=== PATIENT | female | born 1970 | race Caucasian/White ===

== ENCOUNTER → 2019-09-06 | Outpatient (CLI) | payer OTHER, SELFPAY ==
--- NOTE | 2019-09-06 14:54 | BI_ITS ---
MAMMOGRAPHY - BILATERAL SCREENING REASON FOR EXAM: Female, 49 years old. Routine annual screening examination. PERTINENT HISTORY: Grandmother with breast cancer. Aunt with breast cancer. TECHNIQUE: Digital bilateral breast harriet (3D mammographic acquisition) in the CC and MLO projections. 2-D mediolateral oblique (MLO) and craniocaudad (CC) views of both breasts were obtained. CAD: Full Field Digital Mammography with Computer Added Detection was performed. COMPARISON: Comparison is made with prior study dated December 17, 2015 and November 20, 2014. FINDINGS: Breast Composition: The breasts are extremely dense, which lowers the sensitivity of mammography. There are no dominant masses or suspicious calcifications. No other significant abnormalities are identified. There has been no significant change since the prior study. BI/SCREEN MAMM (CAD) W/HARRIET BILAT IMPRESSION: Stable bilateral screening mammogram. Yearly follow-up mammogram recommended. (A) ASSESSMENT CATEGORY: BIRADS Category 1: Negative. A letter regarding these results will be sent to the patient by the facility within 30 days. Approximately 10% of breast cancers are not detected by mammography. A normal mammogram should not delay biopsy of a clinically suspicious abnormality. [id number] Electronically Signed: Abel Shi, at 9:07 EST , Service support ,
== END | disposition home or self-care (01) ==
LOC: OPBI 14:44
PROVIDERS: Family Provider Nurse Practitioner; PCP Nurse Practitioner; Referring Provider Nurse Practitioner; Visit Provider Nurse Practitioner
DX: Z12.31 Encounter for screening mammogram for malignant neoplasm of breast (principal)
CPT/HCPCS: 77063; 77067

== ENCOUNTER 2021-01-15 14:05 | Outpatient (RCR) | payer OTHER, SELFPAY | END 2021-03-30 23:59 | LOC: IMMUN 14:05 | PROVIDERS: PCP Nurse Practitioner; Visit Provider Family Medicine | DX: Z23 Encounter for immunization (principal) | CPT/HCPCS: 0001A; 0002A; 91300 ==

== ENCOUNTER 2022-01-06 13:17 | Outpatient (CLI) | payer OTHER, SELFPAY ==
--- NOTE | 2022-01-06 13:19 | BI_ITS ---
MAMMOGRAPHY - BILATERAL SCREENING 3-D TOMOSYNTHESIS REASON FOR EXAM: Female, 51 years old. SCREENING PERTINENT HISTORY: No significant family history. TECHNIQUE: 2-D mammograms and 3-D Tomosynthesis of the breast (s) were performed. CAD was performed. COMPARISON: 09/06/2019 FINDINGS: The breast composition is Extermely dense tissue. Scattered benign calcifications are seen. No dense spiculated masses or suspicious microcalcifications are identified. No architectural distortion is identified. There is no skin thickening or retraction. There has been no significant change since the prior study. BI/SCRN MAMM (CAD)W/HARRIET BILAT IMPRESSION: No mammographic signs of malignancy. Routine yearly mammograms recommended. ASSESSMENT CATEGORY: BIRADS Category 1: Negative. A letter regarding these results will be sent to the patient by the facility within 30 days. FOLLOW UP RECOMMENDATION: Yearly follow up mammogram recommended. (A) Approximately 10% of breast cancers are not detected by mammography. A normal mammogram should not delay biopsy of a clinically suspicious abnormality. Electronically Signed: Carlin Blanchard MD at 13:57 EDT ,
== END 2022-01-06 23:59 | disposition home or self-care (01) ==
LOC: OPBI 13:17
PROVIDERS: PCP Nurse Practitioner; Visit Provider Nurse Practitioner
DX: Z12.31 Encounter for screening mammogram for malignant neoplasm of breast (principal)
CPT/HCPCS: 77063; 77067

== ENCOUNTER → 2023-11-22 | Outpatient (CLI) | payer OTHER, SELFPAY ==
--- NOTE | 2023-11-22 11:25 | US_ITS ---
STUDY: THYROID ULTRASOUND REASON FOR EXAM: Female, 53 years old. thyroid nodules TECHNIQUE: Ultrasound evaluation of the thyroid was performed with real-time and static bonilla-scale imaging. COMPARISON: 06/20/2016 FINDINGS: RIGHT LOBE: The right lobe of the thyroid gland measures 4.9 x 1.8 x 1.3 cm. There is a homogeneous echotexture. Multiple tiny (less than 5 mm) hypoechoic and anechoic nodules consistent with adenomas or colloid cyst. LEFT LOBE: The left lobe of the thyroid gland measures 4.3 x 1.8 x 1.2 cm. There is a homogeneous echotexture. Multiple tiny (less than 5 mm) hypoechoic and anechoic nodules consistent with adenomas or colloid cyst. ISTHMUS: The isthmus measures 3 mm thick. . The regional lymph nodes are normal. US/Thyroid IMPRESSION: No change in multinodular thyroid gland with tiny adenomas or colloid cyst or Electronically Signed: Carlin Blanchard MD at 19:07 EST ,
--- OUTSIDE RECORDS SUMMARY | 2023-11-22 12:43 | XMS RPT_ITS | CCD ---
Author Name Unknown Address [address] [place] [address] Organization [facility] Care Team Providers Care Certified Professional Coder Name Role Phone Ellie Vargas Attending Unavailable Ellie Vargas Referring Unavailable Ellie Vargas Consulting Unavailable Ellie Vargas Unavailable Sari Triana Unavailable Unavailable Dixon العراقي Unavailable Unavailable Ainsley Neff Unavailable Unavailable Unavailable Unavailable Dixon العراقي Unavailable Unavailable Unavailable Unavailable Ellie Vargas CNP Unavailable Dr. Adonis Weller Unavailable Dixon Villalobos LPN Unavailable Unavailable Ainsley Neff LPN Unavailable Unavailable Unavailable Unavailable Ellie Vargas Unavailable Ellie Vargas Unavailable Medications Current Medications Medication Drug Class(es) Dates Sig (Normalized) Sig (Original) cetirizine hydrochloride 10 mg oral tablet (7 sources) Histamine-1 Receptor Antagonist Start: 01-17-2022 Zyrtec 10 mg oral tablet Dose : 10 mg = 1 tab(s), Oral, qDay, # 30 tab(s), 0 Refill(s) Start Date: 01/17/22 Status: Ordered Completed/Discontinued Medications Medication Drug Class(es) Dates Sig (Normalized) Sig (Original) acetaminophen 325 mg / oxyCODONE hydrochloride 5 mg oral tablet (10 sources) Opioid Agonist End: 06-19-2009 OXYCODONE-ACETAMI NOPHEN, 5-325MG (Oral Tablet) 1-2 every 6 hours Daily for 0 days Refills: 0 Ordered: 19-Jun-2009 JEREMIAH Cardenas LPN End : 19-Jun-2009 Inactive [id number] 200 actuat albuterol 0.09 mg/actuat metered dose inhaler (20 sources) beta2-Adrenergic Agonist Start: 04-22-2020 ProAir HFA 108 (90 Base) MCG/ACT Inhalation Aerosol Solution 1 (one) Aerosol Soln tid prn for 0 days Quantity: 1 {Inhaler} Refills: 0 Ordered: 22-Apr-2020 Ellie Vargas Mary Start : 22-Apr-2020 Active Problems Active Problems Problem Classification Problem Date Documented Da te Episodic/Chronic Administrative/social admission (4 sources) Medical examinations/reports status; Translations: [Well woman exam] 12-07-2018 Episodic Past or Other Problems Problem Classification Problem Date Documented Date Episodic/Chronic Residual codes; unclassified (4 sources) Requires a tetanus booster; Translations: [Need for tetanus booster] Resolved: 12-14-2015 12-14-2015 Episodic Residual codes; unclassified (4 sources) Needs influenza immunization; Translations: [Need for prophylactic vaccination and inoculation against influenza] Resolved: 05-02-2014 07-28-2015 Episodic Unclassified (9 sources) BMI 25.0-25.9,adult Unclassified (9 sources) DOT- GENERAL MEDICAL EXAMINATION FOR ADMINISTRATIVE PURPOSES (V70.3) Unclassified (20 sources) well women --Pamela Resolved: 05-02-2014 05-02-2014 Unclassified (20 sources) Current non-smoker ; Translations: [Current nonsmoker (Renamed from Current non-smoker)] 11-08-2016 Unclassified (10 sources) Deliveries (Parity); Translations: [Deliveries (Parity)] 12-07-2018 Results Test Name Value Interpretation Reference Range Facil ity Vital Signs Date Time Vital Sign Value Performing Clinician Facility 01-17-2022 10:00-0400 Diastolic blood pressure 66 mm[Hg] DR ADONIS WELLER MD [facility] 01-17-2022 10:00-0400 Heart rate 55 /min DR ADONIS WELLER MD [facility] 01-17-2022 10:00-0400 Respiratory rate 13 /min DR ADONIS WELLER MD [facility] 01-17-2022 10:00-0400 Systolic blood pressure 90 mm[Hg] DR ADONIS WELLER MD [facility] 01-17-2022 09:54-0400 Diastolic blood pressure 69 mm[Hg] DR ADONIS WELLER MD [facility] 01-17-2022 09:54-0400 Heart rate 67 /min DR ADONIS WELLER MD [facility] 01-17-2022 09:54-0400 Respiratory rate 12 /min DR ADONIS WELLER MD [facility] 01-17-2022 09:54-0400 Systolic blood pressure 95 mm[Hg] DR ADONIS WELLER MD [facility] 01-17-2022 09:50-0400 Diastolic blood pressure 64 mm[Hg] DR ADONIS WELLER MD [facility] 01-17-2022 09:50-0400 Heart rate 61 /min DR ADONIS WELLER MD [facility] 01-17-2022 09:50-0400 Respiratory rate 16 /min DR ADONIS WELLER MD [facility] 01-17-2022 09:50-0400 Systolic blood pressure 91 mm[Hg] DR ADONIS WELLER MD [facility] 01-17-2022 09:30-0400 Diastolic Blood Pressure NBP [address] ADONIS WELLER MD [facility] 01-17-2022 09:30-0400 Systolic Blood Pressure NBP [address] ADONIS WELLER MD [facility] 01-17-2022 09:28-0400 Diastolic Blood Pressure NBP [address] ADONIS WELLER MD [facility] 01-17-2022 09:28-0400 Systolic Blood Pressure NBP [address] ADONIS WELLER MD [facility] 01-17-2022 09:22-0400 Diastolic Blood Pressure NBP [address] ADONIS WELLER MD [facility] 01-17-2022 09:22-0400 Systolic Blood Pressure NBP [address] ADONIS WELLER MD [facility] 01-17-2022 09:08-0400 Body height 157.[address] ADONIS WELLER MD [facility] 01-17-2022 08:47-0400 Body height 157.[address] ADONIS WELLER MD [facility] 01-17-2022 08:47-0400 Body temperature 97.16 [degF] DR ADONIS WELLER MD [facility] 01-17-2022 08:47-0400 Body weight 67.[address] ADONIS WELLER MD [facility] 01-17-2022 08:47-0400 Heart rate 68 /min DR ADONIS WELLER MD [facility] 12-24-2021 09:38-0500 Body height 157.48 cm Ainsley Neff LPN [facility] Work Phone: Encounters Encounter Date Encounter Type Care Provider Facility Start: 01-17-2022 End: 01-17-[address] ADONIS WELLER MD [facility] Start: 01-06-2022 End: 01-06-2022 Annotation/Addendum Ellie Vargas Work Phone: [facility] Start: 12-24-2021 End: 12-24-2021 Office outpatient visit 10 minutes Ellie Vargas [employer] Work Phone: [facility] Start: 12-17-2021 End: 12-17-2021 Office outpatient visit 15 minutes Ellie Vargas [employer] Work Phone: [facility] Start: 12-17-2021 Review Ellie Vargas [employer] Work Phone: [facility] Start: 04-22-2020 End: 04-22-2020 Office outpatient visit 15 minutes Ellie Garlandtammi [facility] Start: 12-23-2019 End: 12-23-2019 Annotation/Addendum Ellie Varags [facility] Start: 09-06-2019 Review Ellie Vargas [facility] Start: 12-07-2018 End: 12-07-2018 Annotation/Addendum Ellie Vargas [facility] Start: 12-07-2018 End: 12-07-2018 Patient encounter status Ellie Vargas Work Phone: [facility] Start: 12-07-2018 End: 12-07-2018 Periodic preventive med est patient 40-64yrs Ellie Vargas [facility] Start: 11-21-2018 Patient encounter procedure Ellie Vargas [facility] Start: 11-08-2016 End: 11-08-2016 Office outpatient visit 15 minutes Ellie Vargas [facility] Start: 01-14-2016 End: 01-14-2016 Office outpatient visit 15 minutes Ellie Vargas [facility] Start: 12-17-2015 End: 12-17-2015 Phone Encounter Ellie Vargas [facility] Start: 12-14-2015 End: 12-14-2015 Patient encounter procedure Ellie Vargas Work Phone: [facility] Start: 12-14-2015 End: 12-14-2015 Periodic preventive med est patient 18-39 yrs Ellie Vargas [facility] Start: 05-20-2014 End: 05-20-2014 Office outpatient visit 40 minutes Ellie Garlandtammi [facility] Start: 05-02-2014 End: 05-02-2014 Patient encounter procedure Ellie Vargas [facility] Start: 07-11-2012 End: 07-11-2012 Office outpatient visit 15 minutes Ellie Vargas [facility] Start: 07-11-2012 End: 07-11-2012 Physical examination Ellie Vargas Work Phone: [facility] Start: 07-06-2012 End: 07-06-2012 Patient encounter procedure Ellie Vargas [facility] Start: 08-27-2009 End: 08-27-2009 Patient encounter procedure Ellie Vargas [facility] Start: 06-19-2009 End: 06-19-2009 Patient encounter procedure Ellie Vargas [facility] Start: 07-10-2006 End: 07-10-2006 Office outpatient visit 15 minutes Ellie Vargas [facility] Start: 07-10-2006 End: 07-10-2006 Patient encounter status Ellie Vargas Work Phone: [facility] Start: 07-10-2006 End: 07-10-2006 Historical Summary Ellie Vargas [facility] Patient encounter procedure Dixon Villalobos LPN [facility] Work Phone: Procedures Date Procedure Procedure Detail Performing Clinician Start: 01-17-[address] ADONIS WELLER MD Start: 01-06-2022 End: 01-06-2022 SCRN MAMM (CAD)W/HARRIET BILAT Comments: See Note; NOTES: [facility] [address] [place] [address] SCRN MAMM (CAD)W/HARRIET BILAT MR#: [id number] Acct: [id number] Name: GLO HENRY Rep #: [id number] : 1970 F 51 From: Carlin Blanchard MD PCP: HERVE Nolen Status: REG CLI Study: SCRN MAMM (CAD)W/HARRIET BILAT Date of Exam: 12/21 05/13 Exam# [id number] Ordering Dr: Ellie Vargas NP [employer]-Dorina MAMMOGRAPHY - BILATERAL SCREENING 3-D TOMOSYNTHESIS REASON FOR EXAM: Female, 51 years old. SCREENING PERTINENT HISTORY: No significant family history. TECHNIQUE: 2-D mammograms and 3-D Tomosynthesis of the breast (s) were performed. CAD was performed. COMPARISON: 09/06/2019 FINDINGS: The breast composition is Extermely dense tissue. Scattered benign calcifications are seen. No dense spiculated masses or suspicious microcalcifications are identified. No architectural distortion is identified. There is no skin thickening or retraction. There has been no significant change since the prior study. BI/SCRN MAMM (CAD)W/HARRIET BILAT IMPRESSION: No mammographic signs of malignancy. Routine yearly mammograms recommended. ASSESSMENT CATEGORY: BIRADS Category 1: Negative. A letter regarding these results will be sent to the patient by the facility within 30 days. FOLLOW UP RECOMMENDATION: Yearly follow up mammogram recommended. (A) Approximately 10% of breast cancers are not detected by mammography. A normal mammogram should not delay biopsy of a clinically suspicious abnormality. Electronically Signed: Carlin Blanchard MD at 13:57 EDT , CC: HERVE Vargas Special Education Educational Assistant: Signed Ellie Vargas Work Phone: Start: 09-06-2019 End: 09-09-2019 SCREEN MAMM (CAD) W/HARRIET BILAT Comments: See Note; NOTES: [facility] [address] [place] [address] SCREEN MAMM (CAD) W/HARRIET BILAT MR#: [id number] Acct: [id number] Name: GLO HENRY Rep #: [id number] : 1970 F 49 From: Abel Shi MD PCP: HERVE Nolen Status: [facility] Study: SCREEN MAMM (CAD) W/HARRIET BILAT Date of Exam: 09/06/19 Exam# [id number] Ordering Dr: Ellie Vargas MAMMOGRAPHY - BILATERAL SCREENING REASON FOR EXAM: Female, 49 years old. Routine annual screening examination. PERTINENT HISTORY: Grandmother with breast cancer. Aunt with breast cancer. TECHNIQUE: Digital bilateral breast harriet (3D mammographic acquisition) in the CC and MLO projections. 2-D mediolateral oblique (MLO) and craniocaudad (CC) views of both breasts were obtained. CAD: Full Field Digital Mammography with Computer Added Detection was performed. COMPARISON: Comparison is made with prior study dated December 17, 2015 and November 20, 2014. FINDINGS: Breast Composition: The breasts are extremely dense, which lowers the sensitivity of mammography. There are no dominant masses or suspicious calcifications. No other significant abnormalities are identified. There has been no significant change since the prior study. BI/SCREEN MAMM (CAD) W/HARRIET BILAT IMPRESSION: Stable bilateral screening mammogram. Yearly follow-up mammogram recommended. (A) ASSESSMENT CATEGORY: BIRADS Category 1: Negative. A letter regarding these results will be sent to the patient by the facility within 30 days. Approximately 10% of breast cancers are not detected by mammography. A normal mammogram should not delay biopsy of a clinically suspicious abnormality. [id number] Electronically Signed: Abel Shi, at 9:07 EST , Service support , CC: HERVE Vargas Special Education Educational Assistant: Signed Ellie Vargas Work Phone: Start: 06-20-2016 End: 06-20-2016 Thyroid Comments: See Note; NOTES: [facility] [address] [place] [address] Verdana 4d Thyroid MR#: [id number] Acct: [id number] Name: GLO HENRY Rep #: [id number] : 1970 F 46 From: Pb Solares MD PCP: Zoe Osman MD Status: REG CLI Study: Thyroid Date of Exam: 06/20/16 Exam# [id number] Ordering Dr: Zoe Osman MD STUDY: THYROID ULTRASOUND REASON FOR EXAM: Female, 46 years old. NODULES TECHNIQUE: Ultrasound evaluation of the thyroid was performed with real-time and static bonilla-scale imaging. COMPARISON: US - Thyroid - 15:04 FINDINGS: RIGHT LOBE: The right lobe of the thyroid gland measures 5.2x1.4x1.5 cm. There is a homogeneous echotexture. Single nodule noted. It is 3 x 2 x 2mm. The lesion is cystic with regular margins and tari-nodular doppler flow. LEFT LOBE: The left lobe of the thyroid gland measures 5x 1.5 x 1.3 cm. There is a homogeneous echotexture. 2 nodules noted. These are 3 x 3 x 2mm and 3 x 3 x 3mm. The lesion is solid with regular margins and tari-nodular doppler flow. ISTHMUS: The isthmus measures 2mm. US/Thyroid IMPRESSION: Nodules previously noted are stable in size. However, there is a new nodule in the inferior left lobe measuring 3mm. Electronically Signed: Pb Solares MD at 22:15 EDT , Service support [phone], CC: Zoe Osman MD Special Education Educational Assistant: Signed Zoe Osman Work Phone: Start: 01-15-2016 End: 01-15-2016 Transvaginal Non- Comments: See Note; NOTES: [facility] [address] [place] [address] Verdana 4d Transvaginal Non- MR#: [id number] Acct: [id number] Name: GLO HENRY Rep #: [id number] : 1970 F 45 From: Deonte Busch MD PCP: Zoe Osman MD Status: REG CLI Study: Transvaginal Non- Date of Exam: 01/15/16 Exam# [id number] Ordering Dr: Zoe Osman MD STUDY: ULTRASOUND TRANSVAGINAL CLINICAL: Female, 45 years old. Right pelvic fullness TECHNIQUE: Transvaginal COMPARISON: None. FINDINGS: Normal uterine size measuring 11.4 cm in maximal craniocaudal dimension. There are 2 small fibroids, the larger measures 2.2 cm, the smaller 1.3 cm. Normal endometrial thickness measuring 14 mm. There are no endometrial masses, and there is no fluid in the endometrial cavity. Normal uterine cervix, aside from some of the calcifications which are likely from previous instrumentation. Normal right ovary, measuring 2.5 x 3.5 x 1.9 cm. There are multiple follicles without a dominant cyst. Normal left ovary, measuring 2.4 x 2.7 x 1.6 cm. There are multiple follicles without a dominant cyst. There is no free fluid in the pelvis. IMPRESSION: 2 small uterine fibroids. No suspicious adnexal mass or free fluid Electronically Signed: Florentino Busch MD at 13:34 EDT Tel , Service support [phone], CC: Zoe Osman MD Special Education Educational Assistant: Signed Zoe Osman Work Phone: Start: 01-15-2016 End: 01-15-2016 Pelvic (Non ) Comments: See Note; NOTES: [facility] [address] [place] [address] Verdana 4d Pelvic (Non ) MR#: [id number] Acct: [id number] Name: GLO HENRY Rep #: [id number] : 1970 F 45 From: Deonte Busch MD PCP: Zoe Osman MD Status: REG CLI Study: Pelvic (Non ) Date of Exam: 01/15/16 Exam# [id number] Ordering Dr: Zoe Osman MD STUDY: ULTRASOUND TRANSVAGINAL CLINICAL: Female, 45 years old. Right pelvic fullness TECHNIQUE: Transvaginal COMPARISON: None. FINDINGS: Normal uterine size measuring 11.4 cm in maximal craniocaudal dimension. There are 2 small fibroids, the larger measures 2.2 cm, the smaller 1.3 cm. Normal endometrial thickness measuring 14 mm. There are no endometrial masses, and there is no fluid in the endometrial cavity. Normal uterine cervix, aside from some of the calcifications which are likely from previous instrumentation. Normal right ovary, measuring 2.5 x 3.5 x 1.9 cm. There are multiple follicles without a dominant cyst. Normal left ovary, measuring 2.4 x 2.7 x 1.6 cm. There are multiple follicles without a dominant cyst. There is no free fluid in the pelvis. IMPRESSION: 2 small uterine fibroids. No suspicious adnexal mass or free fluid Electronically Signed: Florentino Busch MD at 13:34 EDT Tel , Service support [phone], CC: Zoe Osman MD Special Education Educational Assistant: Signed Zoe Osman Work Phone: Start: 12-17-2015 End: 12-18-2015 Thyroid Comments: See Note; NOTES: [facility] [address] [place] [address] Verdana 4d Thyroid MR#: [id number] Acct: [id number] Name: GLO HENRY Rep #: [id number] : 1970 F 45 From: Abel Shi MD PCP: Zoe Osman MD Status: REG CLI Study: Thyroid Date of Exam: 12/17/15 Exam# [id number] Ordering Dr: Zoe Osman MD STUDY: THYROID ULTRASOUND REASON FOR EXAM: Female, 45 years old. Thyromegaly. TECHNIQUE: Ultrasound evaluation of the thyroid was performed with real-time and static bonilla-scale imaging. COMPARISON: None. FINDINGS: RIGHT LOBE: The right lobe of the thyroid gland measures 4.6 cm x 1.4 cm x 1.2 cm. There is a homogeneous echotexture. There is a 3 mm x 3 mm x 2 mm cyst in the lower pole of the right lobe there are LEFT LOBE: The left lobe of the thyroid gland measures 4.7 cm x 1.6 cm x 1.1 cm. There is a homogeneous echotexture. There is a 3 mm x 3 mm x 3 mm well-defined hypoechoic solid nodule in the inferior pole of the left lobe. ISTHMUS: The isthmus measures 3.0 mm. The regional lymph nodes are normal. IMPRESSION: Sub-centimeters cyst in the right lobe and subcentimeter hypoechoic solid nodule in the left lobe. The thyroid is not enlarged. Electronically Signed: Abel Shi MD at 8:05 EST Tel [phone], Service support [phone], CC: Zoe Osman MD Special Education Educational Assistant: Signed Zoe Osman Work Phone: Start: 12-17-2015 End: 12-17-2015 Bilat Scrn Digital AND CAD Comments: See Note; NOTES: [facility] Services [address] [place] [address] Verdana 4d Bilat Scrn Digital AND CAD MR#: [id number] Acct: [id number] Name: GLO HENRY Rep #: [id number] : 1970 F 45 From: Abel Shi MD PCP: Zoe Osman MD Status: REG CLI Study: Bilat Scrn Digital AND CAD Date of Exam: 12/17/15 Exam# [id number] Ordering Dr: Zoe Osman MD MAMMOGRAPHY - BILATERAL SCREENING REASON FOR EXAM: Female, 45 years old. Routine annual screening examination. PERTINENT HISTORY: Grandmother with breast cancer. TECHNIQUE: Digital examination. Mediolateral oblique (MLO) and craniocaudad (CC) views of both breasts were obtained. CAD: CAD was performed on this study. COMPARISON: Comparison is made with prior study dated April 20, 2015 and July 01, 2011. FINDINGS: Breast Composition: The breasts are extremely dense, which lowers the sensitivity of mammography. There are no dominant masses or suspicious calcifications. No other significant abnormalities are identified. There has been no significant change since the prior study. IMPRESSION: Stable bilateral screening mammogram. Yearly follow-up mammogram recommended. (A) ASSESSMENT CATEGORY: BIRADS Category 1: Negative. A letter regarding these results will be sent to the patient by the facility within 30 days. Approximately 10% of breast cancers are not detected by mammography. A normal mammogram should not delay biopsy of a clinically suspicious abnormality. [id number] Electronically Signed: Abel Shi MD at 15:01 EST Tel [phone], Service support [phone], CC: Zoe Osman MD Special Education Educational Assistant: Signed Zoe Osman Work Phone: Start: 11-20-2014 End: 11-20-2014 Bilat Scrjennifer Digital AND CAD Comments: See Note; NOTES: [facility] Services [address] [place] [address] Breast Imaging Report MR#: [id number] Acct: [id number] Name: GLO HENRY Rep #: [id number] : 1970 F 44 From: Abel Shi MD PCP: Zoe Osman MD Status: REG CLI Study: Rosalinda Phillips Digital AND CAD Date of Exam: 11/20/14 Exam# [id number] Ordering Dr: Zoe Osman MD MAMMOGRAPHY - BILATERAL SCREENING REASON FOR EXAM: Female, 44 years old. Routine annual screening examination. PERTINENT HISTORY: Grandmother with breast cancer. TECHNIQUE: Digital examination. Mediolateral oblique (MLO) and craniocaudad (CC) views of both breasts were obtained. CAD: CAD was performed on this study. COMPARISON: Comparison is made with prior study dated July 01, 2011 and December 28, 2006. FINDINGS: Breast Composition: The breasts are extremely dense, which lowers the sensitivity of mammography. There are no dominant masses or suspicious calcifications. No other significant abnormalities are identified. There has been no significant change since the prior study. IMPRESSION: Stable bilateral screening mammogram. Yearly follow-up recommended. (A) ASSESSMENT CATEGORY: BIRADS Category 2: Benign. A letter regarding these results will be sent to the patient by the facility within 30 days. Approximately 10% of breast cancers are not detected by mammography. A normal mammogram should not delay biopsy of a clinically suspicious abnormality. Electronically Signed: Abel Shi MD at 14:27 EST Tel [phone], Service support [phone], CC: Zoe Osman MD Special Education Educational Assistant: Signed Zoe Osman Work Phone: section DR ADONIS WELLER MD Cholecystectomy DR ADONIS SANTANA MD Tonsillectomy DR ADONIS MANUEL MD Plan of Treatment Date Care Activity Detail Author Start: 12-24-2021 Procedure Education Eprescribed prescriptions (G8553) [facility]; [facility] Work Phone: Start: 12-24-2021 Provider Instructions for Treatment Follow up if no improvement or if symptoms worsen [facility]; [facility] Work Phone: Start: 12-17-2021 Procedure Education Eprescribed prescriptions (G8553) [facility]; [facility] Work Phone: Start: 12-17-2021 Provider Instructions for Treatment [facility]; [facility] Work Phone: Start: 12-17-2021 Comprehensive metabolic panel Metabolic Panel, Comprehensive (21405) [facility]; [facility] Work Phone: Start: 12-17-2021 Assay of thyroid stimulating hormone tsh TSH (THYROID STIMULATING HORMONE) (50362) [facility]; [facility] Work Phone: Start: 12-17-2021 Lipid panel LIPID PANEL (24542) [facility]; [facility] Work Phone: Start: 12-17-2021 Rheumatoid factor quantitative RHEUMATOID FACTOR-QUANT (89239) test code [id number] [facility]; [facility] Work Phone: Start: 12-17-2021 Extractable nuclear antigen antibody any method Systemic Lupus Profile (97783) [facility]; [facility] Work Phone: Start: 12-17-2021 Sedimentation rate rbc non-automated SED RATE ERYTHROCYTE (09805) [facility]; [facility] Work Phone: Start: 12-17-2021 Blood count complete automated CBC & PLATELETS (AUTO) (80524) [facility]; [facility] Work Phone: Start: 04-22-2020 Procedure Education Eprescribed prescriptions (G8553) [facility] Work Phone: Start: 04-22-2020 Provider Instructions for Treatment Follow up in 6 months make apt in am and fasting [facility] Work Phone: Start: 12-07-2018 Procedure Education Eprescribed prescriptions (G8553) [facility] Work Phone: Start: 12-07-2018 Provider Instructions for Treatment [facility] Work Phone: Start: 12-07-2018 Hpv, dna, amp probe HPV, Reflex (52892) [facility] Work Phone: Start: 12-07-2018 Cytp cerv/vag auto thin layer prep mnl screen Thin prep Pap (97395) (no STD testing) [facility] Work Phone: Start: 11-08-2016 Procedure Education Eprescribed prescriptions (G8553) [facility] Work Phone: Start: 11-08-2016 Provider Instructions for Treatment [facility] Work Phone: Start: 12-14-2015 Patient Education [facility] Work Phone: Start: 05-02-2014 Provider Instructions for Treatment [facility] Work Phone: Start: 05-02-2014 Cytp cerv/vag auto thin layer prep mnl screen Thin prep Pap ([id number]) [facility] Work Phone: Start: 07-11-2012 Provider Instructions for Treatment [facility] Work Phone: [facility] Work Phone: [facility] Work Phone: [facility] Work Phone: [facility] Work Phone: [facility] Work [facility] Work [facility] Work Phone: [facility] Work [facility]: [facility] Work [facility] Work Phone: [facility] Work Phone: [facility] Work Phone: [facility] Work Phone: [facility] Work Phone: [facility] Work Phone: Immunizations Immunization Date Immunization Notes Care Provider Kellie smith 08-10-2023 COVID-Moderna (100 MCG/0.5 ML) Ellie Vargas Work Phone: [facility]; [facility] Work Phone: Payers Date Payer Category Payer Unknown [id number] 2011 Private Health Insurance [id number] 2003 Unknown [id number] 1971 Unknown [id number] Unknown Social History Date Type Detail Facility Alcohol Use Never smoker [facility] Work Phone: Hospital Discharge instructions 01-17-2022 Note Date & Type Note Facility 01-17-2022 Hospital Discharg e instructions Patient Education 01/17/2022 09:42:03 Colonoscopy, Adult, Care After, [id number] Colonoscopy, Adult, Care After This sheet gives you information about how to care for yourself after your procedure. Your doctor may also give you more specific instructions. If you have problems or questions, call your doctor. What can I expect after the procedure? After the procedure, it is common to have: A small amount of blood in your poop for 24 hours. Some gas. Mild cramping or bloating in your belly. Follow these instructions at home: General instructions For the first 24 hours after the procedure: ?Do not drive or use machinery. ?Do not sign important documents. ?Do not drink alcohol. ?Do your daily activities more slowly than normal. ?Eat foods that are soft and easy to digest. Take [id number] or prescription medicines only as told by your doctor. To help cramping and bloating: Try walking around. Put heat on your belly (abdomen) as told by your doctor. Use a heat source that your doctor recommends, such as a moist heat pack or a heating pad. ?Put a towel between your skin and the heat source. ?Leave the heat on for 20 30 minutes. ?Remove the heat if your skin turns bright red. This is especially important if you cannot feel pain, heat, or cold. You can get burned. Eating and drinking Drink enough fluid to keep your pee (urine) clear or pale yellow. Return to your normal diet as told by your doctor. Avoid heavy or fried foods that are hard to digest. Avoid drinking alcohol for as long as told by your doctor. Contact a doctor if: You have blood in your poop (stool) 2 3 days after the procedure. Get help right away if: You have more than a small amount of blood in your poop. You see large clumps of tissue (blood clots) in your poop. Your belly is swollen. You feel sick to your stomach (nauseous). You throw up (vomit). You have a fever. You have belly pain that gets worse, and medicine does not help your pain. Summary After the procedure, it is common to have a small amount of blood in your poop. You may also have mild cramping and bloating in your belly. For the first 24 hours after the procedure, do not drive or use machinery, do not sign important documents, and do not drink alcohol. Get help right away if you have a lot of blood in your poop, feel sick to your stomach, have a fever, or have more belly pain. This information is not intended to replace advice given to you by your health care provider. Make sure you discuss any questions you have with your health care provider. Document Released: 11/11/2011 Document Revised: 08/09/2018 Document Reviewed: 07/03/2017 [employer] Patient Education ADOP. Follow Up Care 01/03/2022 12:25:15 With:ADONIS WELLER MD Address: [phone] When: Unknown Comments:Follow-up as needed [facility] Evaluation + Plan note Note Date & Type Note Facility Evaluation + Plan note No data available for this section [facility] Instructions Note Date & Type Note Facility [facility]; [facility] Work Phone: Instructions Note Date & Type Note Facility [facility]; [facility] Work Phone: Instructions Note Date & Type Note Facility [facility]; [facility] Work Phone: Instructions Note Date & Type Note Facility [facility]; [facility] Work Phone: Instructions Note Date & Type Note Facility [facility]; [facility] Work Phone: Summary Purpose Family History Unknown Family Member Name Dates Details Brother 1 Comments:healthy Status:Active Father Comments:hypercholesterolemi a, CTS Status:Active Mother Comments:fibroids Status:Active Sister 1 Comments:healthy Status:Active Unknown Family Member Name Dates Details Brother 1 Comments:healthy Status:Active Father Comments:hypercholesterolemi a, CTS Status:Active Mother Comments:fibroids Status:Active Sister 1 Comments:healthy Status:Active Unknown Family Member Name Dates Details Brother 1 Comments:healthy Status:Active Father Comments:hypercholesterolemi a, CTS Status:Active Mother Comments:fibroids Status:Active Sister 1 Comments:healthy Status:Active Unknown Family Member Name Dates Details Brother 1 Comments:healthy Status:Active Father Comments:hypercholesterolemi a, CTS Status:Active Mother Comments:fibroids Status:Active Sister 1 Comments:healthy Status:Active Unknown Family Member Name Dates Details Brother 1 Comments:healthy Status:Active Father Comments:hypercholesterolemi a, CTS Status:Active Mother Comments:fibroids Status:Active Sister 1 Comments:healthy Status:Active Unknown Family Member Name Dates Details Brother 1 Comments:healthy Status:Active Father Comments:hypercholesterolemi a, CTS Status:Active Mother Comments:fibroids Status:Active Sister 1 Comments:healthy Status:Active Unknown Family Member Name Dates Details Brother 1 Comments:healthy Status:Active Father Comments:hypercholesterolemi a, CTS Status:Active Mother Comments:fibroids Status:Active Sister 1 Comments:healthy Status:Active Unknown Family Member Name Dates Details Brother 1 Comments:healthy Status:Active Father Comments:hypercholesterolemi a, CTS Status:Active Mother Comments:fibroids Status:Active Sister 1 Comments:healthy Status:Active Advance Directives Name Dates Details Immunization Registry [place] - Effective on 08/14/2023. Expiration date unspecified Effective:14-Aug-2023 Instructions Name Dates Details Nonsmoker : How to access he alth information online Indication:Nonsmoker Nonsmoker : How to access he alth information online - Detail Indication:Nonsmoker Nonsmoker : Patient Instruct ions Indication:Nonsmoker Cough : How to access health information online Indication:Cough Cough : How to access health information online - Detail Indication:Cough Cough : Patient Instructions Indication:Cough Thyroid nodule : How to acce ss health information online Indication:Thyroid nodule Thyroid nodule : How to acce ss health information online - Detail Indication:Thyroid nodule Thyroid nodule : Patient Ins tructions Indication:Thyroid nodule Well woman exam : How to acc ess health information online Indication:Well woman exam Well woman exam : How to acc ess health information online - Detail Indication:Well woman exam Well woman exam : Patient In structions Indication:Well woman exam Name Dates Details How to access health informa tion online Indication:Nonsmoker Start:22-Apr-2020 Instruction Type:Patient Education How to access health informa tion online - Detail Indication:Nonsmoker Start:22-Apr-2020 Instruction Type:Patient Education Patient Instructions Indication:Nonsmoker Start:22-Apr-2020 Instruction Type:Provider Instructions for Treatment How to access health informa tion online Indication:Nonsmoker Start:07-Dec-2018 Instruction Type:Patient Education How to access health informa tion online - Detail Indication:Nonsmoker Start:07-Dec-2018 Instruction Type:Patient Education Patient Instructions Indication:Nonsmoker Start:07-Dec-2018 Instruction Type:Provider Instructions for Treatment How to access health informa tion online Indication:Cough Start:08-Nov-2016 Instruction Type:Patient Education How to access health informa tion online - Detail Indication:Cough Start:08-Nov-2016 Instruction Type:Patient Education Patient Instructions Indication:Cough Start:08-Nov-2016 Instruction Type:Provider Instructions for Treatment How to access health informa tion online Indication:Thyroid nodule Start:14-Jan-2016 Instruction Type:Patient Education How to access health informa tion online - Detail Indication:Thyroid nodule Start:14-Jan-2016 Instruction Type:Patient Education Patient Instructions Indication:Thyroid nodule Start:14-Jan-2016 Instruction Type:Provider Instructions for Treatment How to access health informa tion online Indication:Well woman exam Start:14-Dec-2015 Instruction Type:Patient Education How to access health informa tion online - Detail Indication:Well woman exam Start:14-Dec-2015 Instruction Type:Patient Education Patient Instructions Indication:Well woman exam Start:14-Dec-2015 Instruction Type:Provider Instructions for Treatment Name Dates Details How to access health informa tion online Indication:Nonsmoker Start:07-Dec-2018 Instruction Type:Patient Education How to access health informa tion online - Detail Indication:Nonsmoker Start:07-Dec-2018 Instruction Type:Patient Education Patient Instructions Indication:Nonsmoker Start:07-Dec-2018 Instruction Type:Provider Instructions for Treatment How to access health informa tion online Indication:Cough Start:08-Nov-2016 Instruction Type:Patient Education How to access health informa tion online - Detail Indication:Cough Start:08-Nov-2016 Instruction Type:Patient Education Patient Instructions Indication:Cough Start:08-Nov-2016 Instruction Type:Provider Instructions for Treatment How to access health informa tion online Indication:Thyroid nodule Start:14-Jan-2016 Instruction Type:Patient Education How to access health informa tion online - Detail Indication:Thyroid nodule Start:14-Jan-2016 Instruction Type:Patient Education Patient Instructions Indication:Thyroid nodule Start:14-Jan-2016 Instruction Type:Provider Instructions for Treatment How to access health informa tion online Indication:Well woman exam Start:14-Dec-2015 Instruction Type:Patient Education How to access health informa tion online - Detail Indication:Well woman exam Start:14-Dec-2015 Instruction Type:Patient Education Patient Instructions Indication:Well woman exam Start:14-Dec-2015 Instruction Type:Provider Instructions for Treatment Additional Source Comments INFORMATION SOURCE (unrecogn ized section and content) FOR RECORDS PERTAINING TO PATIENTS WHO ARE OR HAVE BEEN ENROLLED IN A CHEMICAL DEPENDENCY/SUBSTANCEABUSE PROGRAM, SOME INFORMATION MAY BE OMITTED. This clinical summary was aggregated from multiple sources. Caution should be exercised in using it in the provision of clinical care. This summary normalizes information from multiple sources, and as a consequence, information in this document may materially change the coding, format and clinical context of patient data. In addition, data may be omitted in some cases. CLINICAL DECISIONS SHOULD BE BASED ON THE PRIMARY CLINICAL RECORDS. [facility]. provides no warranty or guarantee of the accuracy or completeness of information in this document.
== END | disposition home or self-care (01) ==
PROVIDERS: PCP Nurse Practitioner Family; Referring Provider Nurse Practitioner Family; Visit Provider Nurse Practitioner Family
DX: E04.1 Nontoxic single thyroid nodule (principal)
CPT/HCPCS: 76536

== ENCOUNTER → 2023-11-24 | Outpatient (CLI) | payer OTHER, SELFPAY ==
--- NOTE | 2023-11-24 13:40 | BI_ITS ---
MAMMOGRAPHY - BILATERAL SCREENING REASON FOR EXAM: Female, 53 years old. Routine annual screening examination. PERTINENT HISTORY: Grandmother with breast cancer. Aunt with breast cancer. TECHNIQUE: Digital bilateral breast harriet (3D mammographic acquisition) in the CC and MLO projections. 2-D mediolateral oblique (MLO) and craniocaudad (CC) views of both breasts were obtained. CAD: Full Field Digital Mammography with Computer Added Detection was performed. COMPARISON: Comparison is made with prior study dated January 06, 2022 and September 06, 2019. FINDINGS: Breast Composition: The breasts are extremely dense, which lowers the sensitivity of mammography. There are no dominant masses or suspicious calcifications. No other significant abnormalities are identified. There has been no significant change since the prior study. BI/SCRN MAMM (CAD)W/HARRIET BILAT IMPRESSION: Stable bilateral screening mammogram. Yearly follow-up mammogram recommended. (A) ASSESSMENT CATEGORY: BIRADS Category 1: Negative. A letter regarding these results will be sent to the patient by the facility within 30 days. Approximately 10% of breast cancers are not detected by mammography. A normal mammogram should not delay biopsy of a clinically suspicious abnormality. [id number] Electronically Signed: Abel Shi MD at 14:11 EST ,
--- OUTSIDE RECORDS SUMMARY | 2023-11-24 16:47 | XMS RPT_ITS | CCD ---
Author Name Unknown Address [address] [place] [address] Organization [facility] Care Team Providers Care Glue Clamp Operator Name Role Phone Ellie Varags Attending Unavailable Ellie Vargas Referring Unavailable Ellie [...] JEREMIAH Cardenas LPN End : 19-Jun-2009 Inactive [id number] 200 actuat albuterol 0.09 mg/actuat metered dose [...] pressure 66 mm[Hg] DR ADONIS WELLER MD [facility] 01-17-2022 10:00-0400 Heart rate 55 /min DR ADONIS WELLER MD [facility] 01-17-2022 10:00-0400 Respiratory rate 13 /min DR ADONIS WELLER MD [facility] 01-17-2022 10:00-0400 Systolic blood pressure 90 mm[Hg] DR ADONIS WELLER MD [facility] 01-17-2022 09:54-0400 Diastolic blood pressure 69 mm[Hg] DR ADONIS WELLER MD [facility] 01-17-2022 09:54-0400 Heart rate 67 /min DR ADONIS WELLER MD [facility] 01-17-2022 09:54-0400 Respiratory rate 12 /min DR ADONIS WELLER MD [facility] 01-17-2022 09:54-0400 Systolic blood pressure 95 mm[Hg] DR ADONIS WELLER MD [facility] 01-17-2022 09:50-0400 Diastolic blood pressure 64 mm[Hg] DR ADONIS WELLER MD [facility] 01-17-2022 09:50-0400 Heart rate 61 /min DR ADONIS WELLER MD [facility] 01-17-2022 09:50-0400 Respiratory rate 16 /min DR ADONIS WELLER MD [facility] 01-17-2022 09:50-0400 Systolic blood pressure 91 mm[Hg] DR ADONIS WELLER MD [facility] 01-17-2022 09:30-0400 Diastolic Blood Pressure NBP [address] ADONIS WELLER MD [facility] 01-17-2022 09:30-0400 Systolic Blood Pressure NBP [address] ADONIS WELLER MD [facility] 01-17-2022 09:28-0400 Diastolic Blood Pressure NBP [address] ADONIS WELLER MD [facility] 01-17-2022 09:28-0400 Systolic Blood Pressure NBP [address] ADONIS WELLER MD [facility] 01-17-2022 09:22-0400 Diastolic Blood Pressure NBP [address] ADONIS WELLER MD [facility] 01-17-2022 09:22-0400 Systolic Blood Pressure NBP [address] ADONIS WELLER MD [facility] 01-17-2022 09:08-0400 Body height 157.[address] ADONIS WELLER MD [facility] 01-17-2022 08:47-0400 Body height 157.[address] ADONIS WELLER MD [facility] 01-17-2022 08:47-0400 Body temperature 97.16 [degF] DR ADONIS WELLER MD [facility] 01-17-2022 08:47-0400 Body weight 67.[address] ADONIS WELLER MD [facility] 01-17-2022 08:47-0400 Heart rate 68 /min DR ADONIS WELLER MD [facility] 12-24-2021 09:38-0500 Body height 157.48 cm Ainsley Neff LPN [facility] Work Phone: Encounters Encounter Date Encounter Type Care Provider Facility Start: 01-17-2022 End: 01-17-[address] ADONIS WELLER MD [facility] Start: 01-06-2022 End: 01-06-2022 Annotation/Addendum Ellie Vargas Work Phone: [facility] Start: 12-24-2021 End: 12-24-2021 Office outpatient visit 10 minutes Ellie Vargas PILOT INSTRUCTOR Work Phone: [facility] Start: 12-17-2021 End: 12-17-2021 Office outpatient visit 15 minutes Ellie Vargas PILOT INSTRUCTOR Work Phone: [facility] Start: 12-17-2021 Review Ellie Vargas PILOT INSTRUCTOR Work Phone: [facility] Start: 04-22-2020 End: 04-22-2020 Office outpatient visit 15 minutes Ellie Garlandtammi [facility] Start: 12-23-2019 End: 12-23-2019 Annotation/Addendum Ellie Vargas [facility] Start: 09-06-2019 Review Ellie Vargas [facility] Start: 12-07-2018 End: 12-07-2018 Annotation/Addendum Ellie Vargas [facility] Start: 12-07-2018 End: 12-07-2018 Patient encounter status Ellie Vargas Work Phone: [facility] Start: 12-07-2018 End: 12-07-2018 Periodic preventive med est patient 40-64yrs Ellei Vargas [facility] Start: 11-21-2018 Patient encounter procedure Ellie Vargas [facility] Start: 11-08-2016 End: 11-08-2016 Office outpatient visit 15 minutes Ellie Vargas [facility] Start: 01-14-2016 End: 01-14-2016 Office outpatient visit 15 minutes Ellie Vargas [facility] Start: 12-17-2015 End: 12-17-2015 Phone Encounter Ellie Vargas [facility] Start: 12-14-2015 End: 12-14-2015 Patient [...] End: 07-10-2006 Historical Summary Ellie Vargas [facility] Patient encounter procedure Dixon Villalobos LPN [facility] Work Phone: Procedures Date Procedure Procedure Detail Performing Clinician Start: 01-17-[address] ADONIS WELLER MD Start: 01-06-2022 End: 01-06-2022 SCRN MAMM (CAD)W/HARRIET BILAT Comments: See Note; NOTES: [facility] Imaging Services [address] [place] [address] SCRN MAMM (CAD)W/HARRIET BILAT MR#: [id number] Acct: [id number] Name: GLO HENRY Rep #: [id number] : 1970 F 51 From: Carlin Blanchard MD PCP: HERVE Nolen Status: REG CLI Study: SCRN MAMM (CAD)W/HARRIET BILAT Date of Exam: 12/21 05/13 Exam# [id number] Ordering Dr: Ellie Vargas NP SOCIAL SCIENCE MANAGER-Dorina MAMMOGRAPHY - BILATERAL SCREENING 3-D TOMOSYNTHESIS REASON [...] at 13:57 EDT , CC: HERVE Vargas Tufting Machine Operator: Signed Ellie Vargas Work Phone: Start: 09-06-2019 End: 09-09-2019 SCREEN MAMM (CAD) W/HARRIET BILAT Comments: See Note; NOTES: [facility] Imaging Services [address] [place] [address] SCREEN MAMM (CAD) W/HARRIET BILAT MR#: [id number] Acct: [id number] Name: GLO HENRY Rep #: [id number] : 1970 F 49 From: Abel Shi MD PCP: HERVE Nolen Status: [facility] Study: SCREEN MAMM (CAD) W/HARRIET BILAT Date of Exam: 09/06/19 Exam# [id number] Ordering Dr: Ellie Vargas MAMMOGRAPHY - BILATERAL [...] delay biopsy of a clinically suspicious abnormality. [id number] Electronically Signed: Abel Shi, at 9:07 EST , Service support , CC: HERVE Vargas Tufting Machine Operator: Signed Ellie Vargas Work Phone: Start: 06-20-2016 End: 06-20-2016 Thyroid Comments: See Note; NOTES: [facility] Imaging Services [address] [place] [address] Verdana 4d Thyroid MR#: [id number] Acct: [id number] Name: GLO HENRY Rep #: [id number] : 1970 F 46 From: Pb Solares MD PCP: Zoe Osman MD Status: REG CLI Study: Thyroid Date of Exam: 06/20/16 Exam# [id number] Ordering Dr: Zoe Osman MD STUDY: THYROID [...] MD at 22:15 EDT , Service support [phone], CC: Zoe Osman MD Tufting Machine Operator: Signed Zoe Osman Work Phone: Start: 01-15-2016 End: 01-15-2016 Transvaginal Non- Comments: See Note; NOTES: [facility] Imaging Services [address] [place] [address] Verdana 4d Transvaginal Non- MR#: [id number] Acct: [id number] Name: GLO HENRY Rep #: [id number] : 1970 F 45 From: Deonte Busch MD PCP: Zoe Osman MD Status: REG CLI Study: Transvaginal Non- Date of Exam: 01/15/16 Exam# [id number] Ordering Dr: Zoe Osman MD STUDY: ULTRASOUND [...] at 13:34 EDT Tel , Service support [phone], CC: Zoe Osman MD Tufting Machine Operator: Signed Zoe Osman Work Phone: Start: 01-15-2016 End: 01-15-2016 Pelvic (Non ) Comments: See Note; NOTES: [facility] Imaging Services [address] [place] [address] Verdana 4d Pelvic (Non ) MR#: [id number] Acct: [id number] Name: GLO HENRY Rep #: [id number] : 1970 F 45 From: Deonte Busch MD PCP: Zoe Osman MD Status: REG CLI Study: Pelvic (Non ) Date of Exam: 01/15/16 Exam# [id number] Ordering Dr: Zoe Osman MD STUDY: ULTRASOUND [...] at 13:34 EDT Tel , Service support [phone], CC: Zoe Osman MD Tufting Machine Operator: Signed Zoe Osman Work Phone: Start: 12-17-2015 End: 12-18-2015 Thyroid Comments: See Note; NOTES: [facility] Imaging Services [address] [place] [address] Verdana 4d Thyroid MR#: [id number] Acct: [id number] Name: GLO HENRY Rep #: [id number] : 1970 F 45 From: Abel Shi MD PCP: Zoe Osman MD Status: REG CLI Study: Thyroid Date of Exam: 12/17/15 Exam# [id number] Ordering Dr: Zoe Osman MD STUDY: THYROID [...] Abel Shi MD at 8:05 EST Tel [phone], Service support [phone], CC: Zoe Osman MD Tufting Machine Operator: Signed Zoe Osman Work Phone: Start: 12-17-2015 End: 12-17-2015 Bilat Scrn Digital AND CAD Comments: See Note; NOTES: [facility] Imaging Services [address] [place] [address] Verdana 4d Bilat Scrn Digital AND CAD MR#: [id number] Acct: [id number] Name: GLO HENRY Rep #: [id number] : 1970 F 45 From: Abel Shi MD PCP: Zoe Osman MD Status: REG CLI Study: Bilat Scrn Digital AND CAD Date of Exam: 12/17/15 Exam# [id number] Ordering Dr: Zoe Osman MD MAMMOGRAPHY - [...] delay biopsy of a clinically suspicious abnormality. [id number] Electronically Signed: Abel Shi MD at 15:01 EST Tel [phone], Service support [phone], CC: Zoe Osman MD Tufting Machine Operator: Signed Zoe Osman Work Phone: Start: 11-20-2014 End: 11-20-2014 Bilat Scrjennifer Digital AND CAD Comments: See Note; NOTES: [facility] Imaging Services [address] [place] [address] Breast Imaging Report MR#: [id number] Acct: [id number] Name: GLO HENRY Rep #: [id number] : 1970 F 44 From: Abel Shi MD PCP: Zoe Osman MD Status: REG CLI Study: Rosalinda Phillips Digital AND CAD Date of Exam: 11/20/14 Exam# [id number] Ordering Dr: Zoe Osman MD MAMMOGRAPHY - [...] Abel Shi MD at 14:27 EST Tel [phone], Service support [phone], CC: Zoe Osman MD Tufting Machine Operator: Signed Zoe Osman Work Phone: section DR [...] 12-17-2021 Comprehensive metabolic panel Metabolic Panel, Comprehensive (69540) [facility]; [facility] Work Phone: Start: 12-17-2021 Assay of thyroid stimulating hormone tsh TSH (THYROID STIMULATING HORMONE) (69158) [facility]; [facility] Work Phone: Start: 12-17-2021 Lipid panel LIPID PANEL (55407) [facility] Work Phone: Start: 12-17-2021 Rheumatoid factor quantitative RHEUMATOID FACTOR-QUANT (94560) test code [id number] [facility]; [facility] Work Phone: Start: 12-17-2021 Extractable nuclear antigen antibody any method Systemic Lupus Profile (66078) [facility]; [facility] Work Phone: Start: 12-17-2021 Sedimentation rate rbc non-automated SED RATE ERYTHROCYTE (18690) [facility]; [facility] Work Phone: Start: 12-17-2021 Blood count complete automated CBC & PLATELETS (AUTO) (66516) [facility]; [facility] Work [...] 12-07-2018 Hpv, dna, amp probe HPV, Reflex (01000) [facility] Work Phone: Start: 12-07-2018 Cytp cerv/vag auto thin layer prep mnl screen Thin prep Pap (45647) (no STD testing) [facility] Work Phone: Start: 11-08-2016 Procedure Education Eprescribed prescriptions (G8553) [facility] Work Phone: Start: 11-08-2016 Provider Instructions for Treatment [facility] Work Phone: Start: 12-14-2015 Patient Education [facility] Work Phone: Start: 05-02-2014 Provider Instructions for Treatment [facility] Work Phone: Start: 05-02-2014 Cytp cerv/vag auto thin layer prep mnl screen Thin prep Pap (03329) [facility] Work Phone: Start: 07-11-2012 [...] Phone: Payers Date Payer Category Payer Unknown [id number] 2011 Private Health Insurance [id number] 2003 Unknown [id number] 1970 Unknown [id number] Unknown Social History Date Type Detail Facility Alcohol Use Never smoker [facility] Work Phone: Hospital Discharge instructions 01-17-2022 Note Date & Type Note Facility 01-17-2022 Hospital Discharg e instructions Patient Education 01/17/2022 09:42:03 Colonoscopy, Adult, Care After, Yvhc-db-Thhb Colonoscopy, Adult, Care After This sheet gives [...] are soft and easy to digest. Take vfhc-fmf-aqxhduy or prescription medicines only as told by [...] 11/11/2011 Document Revised: 08/09/2018 Document Reviewed: 07/03/2017 [employer] Patient Education [employer]. Follow Up Care 01/03/2022 12:25:15 With:ADONIS WELLER MD Address: [phone] When: Unknown Comments:Follow-up as needed [facility] Evaluation + Plan note Note Date & Type Note Facility Evaluation + Plan note No data available for this section [facility] Instructions Note Date & Type [...] Advance Directives Name Dates Details Immunization Registry Harris - Effective on 08/14/2023. Expiration date unspecified [...] BE BASED ON THE PRIMARY CLINICAL RECORDS. [facility]. provides no warranty or guarantee of the accuracy or completeness of information in this document.
== END | disposition home or self-care (01) ==
LOC: OPBI 13:39
PROVIDERS: PCP Nurse Practitioner Family; Referring Provider Nurse Practitioner Family; Visit Provider Nurse Practitioner Family
DX: Z12.31 Encounter for screening mammogram for malignant neoplasm of breast (principal)
CPT/HCPCS: 77063; 77067

== ENCOUNTER 2025-01-08 12:53 | Outpatient (RCR) | payer OTHER, SELFPAY ==
--- NOTE | 2025-01-08 14:09 | HP.OTEVAL_ITS ---
Patient's Visit Information Visit Information Visit Information: LGO HENRY is a 54 year old F, referred to Occupational Therapy by HERVE Lira, with a diagnosis of R RF trigger finger. Date of Evaluation: 01/08/25 Occupational Therapist: Lilliana Kolb Subjective Subjective: This 54 year old female arrives with dx of R RF trigger finger. per pt occ trigger would happen beginning about a year ago. increased in severity around Aug when finger locked down for several hours unable to re open. Pt tapped finger for 6 week duration and did improve symptoms however pt RF got stiff with decreased ability to make full fist as result especially at DIP joint. Per pt she is triggering approx once a day currently. 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 Pt is R hand dominant. Pt worried for upcoming spring season when she is required to use her hands more that triggering will get worse. Pain R hand RF: Current Pain Intensity: 2 Objective Objective/Observation: Pt arrives doing well no visible swelling noted in R hand -- pt is able to do all ROM assessments during eval without finger triggering ROM ROM Comments: R hand RF MCP 0/85, PIP 0/85, DIP 0/35 L hand RF MCP 0/75, PIP 0/85, DIP 0/70 Pt R RF unable to reach palm of hand when making composite fist Strength Stamp Clerk: R 40# L 60# Lateral Pinch: R 15# L 15# Tripod Pinch: R 10# L 10# Sensation Sensation Comments: denies at this time Quick DASH-Disab of Arm,Shoulder& Hand Quick DASH Score: 15.9075 Rehabilitation General Assessment: This 54 year old female arrives with dx of R ring finger trigger finger. pt presents with decreased R hand RF ROM increased stiffness and tenderness at A1 macarena of hand. Pt with decreased director channel strength of R hand compare to L at this time. Pt has done taping on own for approx 6 weeks and symptoms have improved. Pt would like to keep visits to minimum at this time due to having co pay. Pt would benefit from OT visits 1-3 within 3 month period to provide orthosis modification as needed as well as assess progress and ROM and assure exercises being carried over at home. Rehabilitation Potential: Good Anticipated Interventions Anticipated Interventions: A/AAROM/PROM, Strengthening, Triggerpoint Release, Modalities, Orthoses, Joint Protection/Energy Conservation, Education re Diagnosis and Home Program Visit Plan Frequency: 1-3 sessions in 3 months Duration: 1-3 sessions in 3 months General Plan: bracing trigger point release blocking exercise PROM TEXT: Thank you for the opportunity to evaluate your patient. For Medicare and Medicare HMO plans, please review the plan of care and approve it. It will need to be FAXED BACK to us at [phone] for Medicare purposes. Please let me know if there are questions or concerns regarding this plan of care. Physician Signature: Date:
--- NOTE | 2025-05-21 10:46 | HP.OT.NRP ---
Patient Information Patient Information: GLO HENRY was seen in my office for initial evaluation on 01/08/25. The following Plan of Care was established for this patient: POC Established Initial Frequency: 1-3 sessions in 3 months Initial Duration: 1-3 sessions in 3 months Anticipated Interventions Anticipated Interventions: A/AAROM/PROM, Strengthening, Triggerpoint Release, Modalities, Orthoses, Joint Protection/Energy Conservation, Education re Diagnosis and Home Program Last Seen Last Seen: This patient was last seen in our office 01/08/25. Pertinent comments regarding their Occupational therapy will appear below: This 55 year old female seen by OT for dx of R RF trigger finger. Pt seen for evaluation and then pt does not schedule additional visits. discharge from OT caseload at this time due to lapse in time of services. At this point I will be discontinuing this patient from occupational therapy. I would be happy to see this patient again in the future if found appropriate by the physician. Thank you! Lilliana Kolb
== END 2025-01-08 19:00 | disposition home or self-care (01) ==
LOC: OT 12:53
PROVIDERS: PCP Nurse Practitioner Family; Referring Provider Nurse Practitioner Family; Visit Provider Nurse Practitioner Family
DX: M65.341 Trigger finger, right ring finger (principal)
CPT/HCPCS: 97166; 97530; 97760